=== PATIENT | female | born 1955 ===

== ENCOUNTER 2016-11-12 07:17 | Emergency (ER) | payer OTHER ==
[2016-11-12 07:18] VITALS: BMI 27.1
[2016-11-12 07:55] VITALS: TEMP 99.7
[2016-11-12] MEDS ORDERED: Sodium Chloride 0.9% 1,000 ML IV STA (08:10)
--- NOTE | 2016-11-12 08:18 | ED PDOC ---
Arrival/HPI - General Chief Complaint: Cough, Cold, Congestion Time Seen by Provider: 11/12/16 07:55 Historian: Patient - History of Present Illness Narrative History of Present Illness (Text): 11/12/16 08:00 Dedrick Dimas is a 60 year old female, whose past medical history includes high cholesterol, arthritis, and hypertension, who presents to the emergency department complaining of body aches, fever, sore throat, and productive cough for 2 days. Patient states that she also experiences associated nausea and produces white sputum with coughs. Patient notes that she has not taken any medications for the pain today but has been eating cough drops and using a nasal vaporizing chest rub. Patient denies any other complaint at this time. PME: Dr. Trinh Time/Duration: < week (2 days) Symptom Onset: Gradual Symptom Course: Unchanged Severity Level: Mild Activities at Onset: Light Context: Home Past Medical History - Provider Review Nursing Documentation Reviewed: Yes - Infectious Disease Hx of Infectious Diseases: None - Cardiac Hx Cardiac Disorders: Yes Hx Hypertension: Yes - Pulmonary Hx Respiratory Disorders: No - Neurological Hx Neurological Disorder: No - HEENT Hx HEENT Disorder: No - Renal Hx Renal Disorder: No - Endocrine/Metabolic Hx Endocrine Disorders: No - Hematological/Oncological Hx Blood Disorders: No - Integumentary Hx Dermatological Disorder: No - Musculoskeletal/Rheumatological Hx Musculoskeletal Disorders: Yes Hx Arthritis: Yes - Gastrointestinal Hx Gastrointestinal Disorders: No - Genitourinary/Gynecological Hx Genitourinary Disorders: No - Psychiatric Hx Psychophysiologic Disorder: No Hx Substance Use: No - Surgical History Other/Comment: unspecified "throat and abd surgeries" - Anesthesia Hx Anesthesia: Yes Hx Anesthesia Reactions: No Hx Malignant Hyperthermia: No Family/Social History - Physician Review Nursing Documentation Reviewed: Yes Family/Social History: No Known Family HX Smoking Status: Never Smoked Hx Alcohol Use: No Hx Substance Use: No Allergies/Home Meds Allergies/Adverse Reactions: Allergies aspirin Allergy (Verified 11/12/16 07:55) ANAPHYLAXIS Home Medications: Home Meds Medication Instructions Recorded Confirmed Simvastatin [Zocor] 11/12/16 amLODIPine [Norvasc] 11/12/16 Review of Systems - Physician Review All systems were reviewed & negative as marked: Yes - Review of Systems Constitutional: Fevers. absent: Night Sweats Eyes: absent: Vision Changes ENT: absent: Hearing Changes Respiratory: Cough, Sputum. absent: SOB Cardiovascular: absent: Chest Pain Gastrointestinal: Nausea. absent: Abdominal Pain Genitourinary Female: absent: Urine Output Changes Musculoskeletal: absent: Back Pain, Neck Pain Skin: absent: Rash Endocrine: absent: Polyuria Hemo/Lymphatic: absent: Easy Bleeding Psychiatric: absent: Depression Physical Exam - Physical Exam Narrative Physical Exam (Text): Constitutional: No acute distress. Head: Normocephalic. Atraumatic. Eyes: PERRL. ENT: Congestion. Moist mucous membranes. No erythema. No exudates. No nuchal rigidity. Neck: Supple. Cardiovascular: Regular rate. Chest: No tenderness. Respiratory: Clear to auscultation bilaterally. GI: Soft. Nontender. Nondistended. Back: No CVA tenderness. Musculoskeletal: No tenderness or swelling of extremities. Skin: No rash. Neurologic: Alert, no focal deficit. Vital Signs Reviewed: Yes Vital Signs Temp Pulse Resp BP Pulse Ox 11/12/16 08:03 98 H 18 141/80 100 11/12/16 07:53 99.7 F H 87 16 141/80 97 Temperature: Febrile Blood Pressure: Normal Pulse: Regular Respiratory Rate: Normal Appearance: Positive for: Well-Appearing, Non-Toxic, Comfortable Pain Distress: None Mental Status: Positive for: Alert and Oriented X 3 Medical Decision Making ED Course and Treatment: 11/12/16 08:00 Impression: 60 year old female complaining of body aches, fever, sore throat, and productive cough for 2 days. Differential Diagnosis include but are not limited to: Plan: -- Chest X-ray -- Urinalysis -- Labs -- Toradol, Zofran, and IV Fluids -- Reassess and disposition Prior Visits: Notes and results from previous visits were reviewed. Patient last seen in ED on 06/11/16 for a 3rd digit injury on the right hand from a shutting door that day. Patient was discharged home. Progress Notes: 11/12/16 10:06 Reviewed radiology, Chest x-ray shows no infiltrate or consolidation. Patient feels better, would like to go home. Will discharge on antibiotics for mild UTI, patient does report some dysuria and mild leukocytosis with probably URI. Instructed to f/u with PMD, return to ER for any reason. - Lab Interpretations Lab Results: 11/12/16 08:40 11/12/16 08:40 Lab Results 11/12/16 08:40: Sodium 135, Potassium 4.2, Chloride 98, Carbon Dioxide 26, Anion Gap 15, BUN 14, Creatinine 0.7, Est GFR ( Amer) > 60, Est GFR (Non- Af Amer) > 60, Random Glucose 105, Calcium 9.2, Total Bilirubin 0.5, AST 23, ALT 25, Alkaline Phosphatase 81, Total Protein 7.8, Albumin 4.2, Globulin 3.6, Albumin/Globulin Ratio 1.2 11/12/16 08:40: Influenza Typ A,B (EIA) Negative for flu a/b 11/12/16 08:40: WBC 14.4 H, RBC 4.35, Hgb 13.4, Hct 38.4, MCV 88.3, MCH 30.8, MCHC 34.9, RDW 14.0, Plt Count 238, MPV 10.0, Gran % 81.8 H, Lymph % (Auto) 9.4 L, Ceiba % (Auto) 8.3 H, Eos % (Auto) 0.3 L, Baso % (Auto) 0.2, Gran # 11.77 H, Lymph # 1.4, Ceiba # 1.2 H, Eos # 0.1, Baso # 0.03 11/12/16 08:35: Urine Color Yellow, Urine Appearance Clear, Urine pH 7.0, Ur Specific [place] 1.020, Urine Protein Trace H, Urine Glucose (UA) Negative, Urine Ketones Negative, Urine Blood Small H, Urine Nitrate Negative, Urine Bilirubin Negative, Urine Urobilinogen 2.0 H, Ur Leukocyte Esterase Small H, Urine RBC 5 - 10, Urine WBC 2 - 5, Ur Epithelial Cells 3 - 4, Urine Bacteria Small I have reviewed the lab results: Yes - RAD Interpretation Radiology Orders: 11/12/16 08:10 CHEST TWO VIEWS (PA/LAT) [RAD] Stat - Medication Orders Current Medication Orders: Discontinued Medications Sodium Chloride (Sodium Chloride 0.9%) 1,000 mls @ 999 mls/hr IV .Q1H1M STA Stop: 11/12/16 09:10 Last Admin: 11/12/16 09:09 Dose: 999 mls/hr Ketorolac Tromethamine (Toradol) 30 mg IVP STAT STA Stop: 11/12/16 08:11 Last Admin: 11/12/16 09:09 Dose: 30 mg Ketorolac Tromethamine (Toradol) Confirm Administered Dose 30 mg .ROUTE .STK- MED ONE Stop: 11/12/16 09:06 Ondansetron HCl (Zofran Inj) 4 mg IVP STAT STA Stop: 11/12/16 08:11 Last Admin: 11/12/16 09:09 Dose: 4 mg Ondansetron HCl (Zofran Inj) Confirm Administered Dose 4 mg .ROUTE .STK-MED ONE Stop: 11/12/16 09:06 - Scribe Statement The provider has reviewed the documentation as recorded by the Jefryibjessi Barker Provider Scribe Attestation: All medical record entries made by the Scribe were at my direction and personally dictated by me. I have reviewed the chart and agree that the record accurately reflects my personal performance of the history, physical exam, medical decision making, and the department course for this patient. I have also personally directed, reviewed, and agree with the discharge instructions and disposition. Disposition/Present on Arrival - Present on Arrival Any Indicators Present on Arrival: No History of DVT/PE: No History of Uncontrolled Diabetes: No Urinary Catheter: No History of Decub. Ulcer: No History Surgical Site Infection Following: None - Disposition Have Diagnosis and Disposition been Completed?: Yes Diagnosis: URI (upper respiratory infection), UTI (urinary tract infection) Disposition: HOME/ ROUTINE Disposition Time: 10:15 Patient Plan: Discharge Condition: STABLE Discharge Instructions (ExitCare): Upper Respiratory Infection (ED) Prescriptions: levoFLOXacin [Levaquin] 1 tab PO DAILY #5 tab Referrals: Matt Trinh MD [Primary Care Provider] - Follow up with primary
[2016-11-12 08:47] LABS: URINE BILIRUBIN NEGATIVE (NEGATIVE); URINE BLOOD SMALL (NEGATIVE); URINE GLUCOSE (UA) NEGATIVE (NEGATIVE); URINE KETONE NEGATIVE (NEGATIVE); URINE LEUKOCYTE ESTERASE SMALL Leu/uL (NEGATIVE); URINE PROTEIN TRACE mg/dL (<30 mg/dL)
[2016-11-12 08:48] LABS: URINE APPEARANCE CLEAR (CLEAR); URINE COLOR YELLOW (YELLOW)
[2016-11-12 08:51] LABS: ADD MANUAL DIFF? NO
[2016-11-12 08:57] LABS: BASO # 0.03 K/mm3 (0.0-2.0); BASO % 0.2 % (0.0-3.0); EOS # 0.1 (0.0-0.7); EOS % 0.3 % (1.5-5.0); GRAN # 11.77 (1.4-6.5); GRAN % 81.8 % (50.0-68.0); HEMATOCRIT 38.4 % (36.0-48.0); LYMPH # 1.4 (1.2-3.4); LYMPH % 9.4 % (22.0-35.0); MEAN CELL VOLUME 88.3 fL (80.0-105.0); MEAN CORPUSCULAR HEMOGLOBIN 30.8 pg (25.0-35.0); MEAN CORPUSCULAR HGB CONC 34.9 g/dl (31.0-37.0); MONO # 1.2 (0.1-0.6); MONO % 8.3 % (1.0-6.0); PLATELET COUNT 238 10^3/uL (120.0-450.0); WHITE BLOOD COUNT 14.4 10^3/ul (4.5-11.0)
[2016-11-12 09:12] LABS: URINE BACTERIA SMALL (NEG)
[2016-11-12 09:15] LABS: ALB/GLOB RATIO 1.2 (1.1-1.8); ALKALINE PHOSPHATASE 81 U/L (38-133); ALT/SGPT 25 U/L (7-56); AST/SGOT 23 U/L (15-39); BILIRUBIN,TOTAL 0.5 mg/dL (0.2-1.3); BLOOD UREA NITROGEN 14 mg/dL (7-21); CALCIUM 9.2 mg/dL (8.4-10.5); CARBON DIOXIDE 26 mmol/L (21-33); CHLORIDE 98 mmol/L (98-107); GFR AFRICAN-AMERICAN > 60; GLUCOSE,RANDOM 105 mg/dL (70-110); POTASSIUM 4.2 mmol/L (3.6-5.0); SODIUM 135 mmol/L (132-148); TOTAL PROTEIN 7.8 g/dL (5.8-8.3)
[2016-11-12 10:47] VITALS: BP 138/82; PULSE 90; RESP 15; O2SAT 97
--- NOTE | 2016-11-12 10:49 | RAD ---
HISTORY: cough COMPARISON: 02/26/2014 TECHNIQUE: Chest PA and lateral FINDINGS: LUNGS: No active pulmonary disease. PLEURA: No significant pleural effusion identified. No pneumothorax apparent. CARDIOVASCULAR: Normal. OSSEOUS STRUCTURES: No significant abnormalities. VISUALIZED UPPER ABDOMEN: Normal. OTHER FINDINGS: None. IMPRESSION: No active disease.
== END 2016-11-12 10:30 | disposition home or self-care (01) ==
LOC: ED 07:17
DX: J06.9 Acute upper respiratory infection, unspecified (principal); N39.0 Urinary tract infection, site not specified; I10 Essential (primary) hypertension
CPT/HCPCS: 71020; 80053; 81001; 85025; 87804; 96361; 96374; 96375; 99283; J1885; J2405; J7040